=== PATIENT | male | born 1985 | race Caucasian/White ===

== ENCOUNTER → 2024-05-17 | Outpatient (BNVA) | payer MEDICAID, SELFPAY | END | disposition home or self-care (01) | PROVIDERS: PCP Family Medicine; Referring Provider Family Medicine; Visit Provider Urology | DX: N47.1 Phimosis (principal); N48.1 Balanitis; E66.9 Obesity, unspecified; Z68.39 Body mass index [BMI] 39.0-39.9, adult | CPT/HCPCS: 81003; 99212; G0463 ==

== ENCOUNTER → 2024-10-30 | Outpatient (BNVA) | payer MEDICAID, SELFPAY | END | disposition home or self-care (01) | PROVIDERS: PCP Family Medicine; Referring Provider Family Medicine; Visit Provider Urology | DX: N40.1 Benign prostatic hyperplasia with lower urinary tract symptoms (principal); N13.8 Other obstructive and reflux uropathy; N47.1 Phimosis; I10 Essential (primary) hypertension; E66.01 Morbid (severe) obesity due to excess calories; Z68.39 Body mass index [BMI] 39.0-39.9, adult; E11.9 Type 2 diabetes mellitus without complications | CPT/HCPCS: 81003; 99212; G0463 ==

== ENCOUNTER 2024-11-03 10:53 | Emergency (ER) | payer MEDICAID, SELFPAY ==
[2024-11-03 11:01] VITALS: BP 173/113; BP 177/114; PULSE 80; RESP 18; TEMP 36.9; O2SAT 96; BMI 38.6
--- NOTE | 2024-11-03 11:30 | PD.EDRME ---
Rapid Medical Screening Exam RME Arrival date/time: 11/03/24 10:53 39-year-old male with reports no significant medical history presents with complaints of right-sided facial pain and right-sided ear pain patient noted to be hypertensive Chief Complaint: Skin/Abscess/Foreign Body Time Seen by Provider: 11/03/24 11:11 Vital signs: Vital Signs Temperature 98.4 F 11/03/24 11:01 Pulse Rate 80 11/03/24 11:01 Respiratory Rate 18 11/03/24 11:01 Blood Pressure 177/114 H 11/03/24 11:01 Pulse Oximetry (%) 96 11/03/24 11:01 Oxygen Delivery Method Room Air 11/03/24 11:01
[2024-11-03 11:32] VITALS: BP 177/114; PULSE 80
[2024-11-03] MEDS: HYDROcodone/APAP 5/325 TABLET 1 TAB PO (11:32)
[2024-11-03] MEDS: cloNIDine HCL 0.1 MG TABLET PO ×2 (11:32→13:45)
[2024-11-03 11:43] LABS: Basophils % (Auto) 1 % (0-2.5); Eosinophils # (Auto) 0.3 Thou/mm3 (0.0-0.5); Eosinophils % (Auto) 4 % (0-10); Hematocrit 53.1 % (41.0-53.0); Hemoglobin 19.2 g/dL (13.5-16.0); Immature Granulocytes % (Auto) 0 % (0-0); Immature Granulocytes Auto 0.03 Thou/mm3 (0.00-0.00); Lymphocytes # (Auto) 1.8 Thou/mm3 (1.0-4.8); Lymphocytes % (Auto) 25 % (10-50); Mean Corpuscular HGB Conc 36.2 g/dl (31.0-37.0); Mean Corpuscular Hemoglobin 32.9 pg (25.0-35.0); Mean Corpuscular Volume 91 fL (80-100); Monocytes # (Auto) 0.5 Thou/mm3 (0.0-0.8); Monocytes % (Auto) 7 % (0-12); Neutrophils # (Auto) 4.7 Thou/mm3 (1.8-7.7); Neutrophils % (Auto) 64 % (37-80); Nucleated Red Blood Cell % 0 /100 WBC (0); Platelet Count 142 Thou/mm3 (140-440); RDW Standard Deviation 38.3 fL (35.1-43.9); Red Blood Count 5.84 Miln/mm3 (4.50-5.90); White Blood Count 7.4 Thou/mm3 (3.8-10.6)
[2024-11-03 12:01] LABS: Glucose Estimated Average 226 mg/dL (80-131); Hemoglobin A1C 9.5 % Hgb (4.8-6.0)
[2024-11-03 12:02] LABS: Alanine Aminotransferase 109 U/L (10-49); Albumin, Serum 4.4 gm/dL (3.5-5.0); Albumin/Globulin Ratio 1.3 (1.2-2.2); Alkaline Phosphatase 107 U/L (46-116); Anion Gap 9 (7-16); Aspartate Amino Transferase 120 U/L (0-34); BUN/Creatinine Ratio 9 Ratio (12-20); Bilirubin,Total 1.3 mg/dL (0.3-1.2); Blood Urea Nitrogen 7 mg/dL (9-23); Calcium 9.3 mg/dL (8.3-10.6); Calcium (Corrected) 9.3 mg/dL (8.5-10.1); Carbon Dioxide 28.1 mMol/L (20.0-31.0); Chloride 101 mMol/L (98-107); Creatinine (Component) 0.8 mg/dL (0.6-1.3); Globulin 3.5 gm/dL (2.3-3.5); Glucose 253 mg/dL (74-106); Osmolality,Calculated 282 (275-295); Potassium 4.2 mMol/L (3.4-5.1); Sodium 138 mMol/L (136-145); Total Protein 7.9 gm/dL (5.7-8.2); eGFR > 60 See Note
[2024-11-03] MEDS: ACETAMINOPHEN 325 MG TABLET 650 MG PO (13:44)
[2024-11-03] MEDS: cephALEXin 250 MG CAPSULE 500 MG PO (13:44)
[2024-11-03 13:45] VITALS: BP 177/114; PULSE 80
--- NOTE | 2024-11-03 13:48 | EDNOTE_ITS ---
ED Skin Abcess FB-RME/HPI General Chief complaint: Skin/Abscess/Foreign Body Stated complaint: PAINFUL SWELING RIGHT SIDE OF FACE Time Seen by Provider: 11/03/24 11:11 Arrival date/time: 11/03/24 10:53 Limitations: no limitations RME / HPI RME / HPI narrative: 11/03/24 10:53 39-year-old male with reports no significant medical history presents with complaints of right-sided facial pain and right-sided ear pain patient noted to be hypertensive DR. GRIFFITHS MAIN ED EVALUATION: 39 year old male with no stated medical history presents to the ED for evaluation of localized pain near the right ear, which began on Tuesday and has progressively worsened. The patient reports taking OTC pain medication at home with minimal relief. The pain is now associated with right ear discomfort but without drainage, hearing loss, or other otologic symptoms. He denies fever, headache, facial weakness, or other associated complaints. Related Data Previous Rx's ?Medication ?Instructions ?Recorded cephalexin 500 mg capsule 500 mg PO Q6H 10 days #40 ca ps 11/03/24 clonidine HCl 0.1 mg tablet 0.1 mg PO BID high blood p ressure 11/03/24 #20 tabs Allergies Allergy/AdvReac Type Severity Reaction Status Date / Time No Known Allergies Allergy Verified 11/03/24 10:55 Review of Systems Review of Systems Systems Reviewed: All systems reviewed, normal except as documented Past Medical History Past Medical History NEUROLOGIC: Negative Neurological Disorders or Seizures CARDIAC: Negative Congestive Heart Failure RESPIRATORY: Negative Chronic Obstructive Pulmonary Disease (COPD) GENITOURINARY: Negative Renal Disease ENDOCRINE: Negative Diabetes Mellitus Type 1, Diabetes Mellitus Type 2 or Hyperthyroidism Social History SMOKING STATUS: Never smoker ED Exam General Limitations: Present no limitations General appearance: Present alert and in no apparent distress Head Head exam: Present atraumatic, normocephalic and normal inspection Eye Eye exam: Present normal appearance, PERRL and EOMI ENT ENT exam: Present normal oropharynx, mucous membranes moist and other (normal facial contour, rigth TM normal, no TMJ tenderness, no pain with pulling on ear, no evidence of abscess ) Neck Neck exam: Present normal inspection, full ROM and trachea midline Chest Chest inspection: Present normal inspection and symmetric chest wall rise Respiratory Respiratory exam: Present normal lung sounds bilaterally Cardiovascular Cardiovascular exam: Present regular rate, normal rhythm and normal heart sounds Abdominal Exam Abdominal exam: Present soft and normal bowel sounds Extremities Exam Extremities exam: Present normal inspection and full ROM Back Exam Back exam: Present normal inspection and full ROM Neurological Exam Neurological exam: Present alert, oriented X3 and CN II-XII intact Psychiatric Psychiatric exam: Present normal affect and normal mood Skin Skin exam: Present warm, dry, intact and normal color Course Quality Measures none Orders Category Date Time Status A1C [Glycohemoglobin w (eAG)] Stat Lab 11/03/24 11:30 Completed CBC Stat Lab 11/03/24 11:30 Completed CMP [Comprehensive Metabolic Panel] Stat Lab 11/03/24 11:30 Completed Acetaminophen Tab [Tylenol Tab] Med 11/03/24 13:24 Discontinued 650 mg PO X1 ONE HYDROcodone*/APAP 5/325 [Roxana 5/325] Med 11/03/24 11:20 Discontinued 1 tab PO X1 ONE cephALEXin [Keflex] Med 11/03/24 13:24 Discontinued 500 mg PO X1 ONE cloNIDine HCL [Catapres] Med 11/03/24 11:20 Discontinued 0.1 mg PO X1 ONE cloNIDine HCL [Catapres] Med 11/03/24 13:24 Discontinued 0.1 mg PO X1 ONE Vital Signs Vital signs: Vital Signs Temperature 98.4 F 11/03/24 11:01 Pulse Rate 80 11/03/24 11:01 Respiratory Rate 18 11/03/24 11:01 Blood Pressure 177/114 H 11/03/24 11:01 Pulse Oximetry (%) 96 11/03/24 11:01 Oxygen Delivery Method Room Air 11/03/24 11:01 Pulse ox is 96% on room air which is adequate. Skin / Abscess / Foreign Body MDM Narrative MDM Narrative:: Unique Varela am scribing for and in the presence of Dr. Griffiths. Patient remains clinically stable throughout the emergency department visit. We reviewed all the results, analysis, and treatment plans. Patient is amenable to discharge. Strict return precautions were outlined. Patient was discharged in stable condition. Patient data External records reviewed:: [facility] previous records (I reviewed ED visit on 01/20/2023 ) Clinical information provided by:: patient Social determinants that could affect healthcare access:: alcohol use Patient has the following chronic illnesses:: None reported How is presenting disease/condition affected by chronic disease/condition?: no chronic disease Evaluation data The following diagnostics were reviewed and interpreted by me:: lab results Lab and/or radiology exams considered but not ordered:: None Interpretation Summary: Patient has elevated hemoglobin, no leukocytosis, no evidence of infection. Medications / Prescriptions Medications or Prescriptions considered but not ordered:: None Medication administrations:: Medication Administration History Discontinued Medications Acetaminophen (Acetaminophen 325 Mg Tablet) 650 mg PO X1 ONE Stop: 11/03/24 13:25 Last Admin: 11/03/24 13:44 Dose: 650 mg Documented By: ANGELA Hydrocodone Bitart/Acetaminophen (Hydrocodone/Apap 5/325 Tablet) 1 tab PO X1 ONE Stop: 11/03/24 11:21 Last Admin: 11/03/24 11:32 Dose: 1 tab Documented By: TAWNYA Cephalexin HCl (Cephalexin 250 Mg Capsule) 500 mg PO X1 ONE Stop: 11/03/24 13:25 Last Admin: 11/03/24 13:44 Dose: 500 mg Documented By: ANGELA Clonidine (Clonidine Hcl 0.1 Mg Tablet) 0.1 mg PO X1 ONE Stop: 11/03/24 11:21 Last Admin: 11/03/24 11:32 Dose: 0.1 mg Documented By: TAWNYA Clonidine (Clonidine Hcl 0.1 Mg Tablet) 0.1 mg PO X1 ONE Stop: 11/03/24 13:25 Last Admin: 11/03/24 13:45 Dose: 0.1 mg Documented By: ANGELA See above Consultations Consultation(s) initiated? (list below): No Diagnosis Skin/Abscess Differential Diagnosis: abscess of skin or subcutaneous tissue, herpes zoster, cellulitis and contact dermatitis Most likely diagnosis given after review of the tests above:: Sebaceous cyst Admission Indicated Admission indicated?: not indicated Admission Request Was there a request for admission?: No Disposition Plan Disposition Plan: Discharge Discharge Attestation Discharge Attestation: The patient and all family members were given an opportunity to ask questions and understood the discharge instructions. Discharge instructions specifically effects, indications for sooner follow up or return to the emergency department, and the expected course of current diagnosis. Patient condition: Stable Discharge Plan Plan Patient Disposition: HOME (Self Care) Prescriptions/Referrals Prescriptions/Med Rec: New cephalexin 500 mg capsule 500 mg PO Q6H 10 Days Qty: 40 0RF clonidine HCl 0.1 mg tablet 0.1 mg PO BID MDD 3 Qty: 20 0RF Referrals: [facility] [Outside] - In 1 week Problem List Clinical Impression: Sebaceous cyst, Elevated blood pressure reading, Elevated hemoglobin Patient/Caregiver Discharge Instructions Education Materials: ED Epidermoid Cyst, No Infection Additional Instructions: Apply warm compresses to the area. Please buy a blood pressure cuff from the store and take your blood pressure every morning to show to your doctor. Follow-up with the [facility] in 3 to 5 days for recheck and blood pressure management. You can return to the emergency department sooner if symptoms worsen or if you notice any new, concerning issues. Print Language: Estonian Stand Alone Forms: Geetha Award Info., Patient Portal Info Letter
== END 2024-11-03 14:05 | disposition home or self-care (01) ==
PROVIDERS: Nurse Practitioner Primary Care; Emergency Provider Family Medicine; PCP Family Medicine
DX: L72.3 Sebaceous cyst (principal); R03.0 Elevated blood-pressure reading, without diagnosis of hypertension
CPT/HCPCS: 36415; 80053; 83036; 85025; 99283; A9270

== ENCOUNTER 2024-12-05 11:11 | Emergency (ER) | payer MEDICAID, SELFPAY ==
[2024-12-05 11:28] VITALS: BP 179/122; BP 187/117; PULSE 96; RESP 18; TEMP 37.1; O2SAT 96; BMI 39.4
--- NOTE | 2024-12-05 11:45 | PD.EDRME ---
Rapid Medical Screening Exam E Arrival date/time: 12/05/24 11:11 39-year-old male presents to the emergency department today for complaints of right-sided facial swelling ongoing for the last couple of days incidentally patient noted to have high blood pressure patient reports history of. Patient does not take any medication for his blood pressure. Chief Complaint: Skin/Abscess/Foreign Body Vital signs: Vital Signs Temperature 98.7 F 12/05/24 11:28 Pulse Rate 96 12/05/24 11:28 Respiratory Rate 18 12/05/24 11:28 Blood Pressure 187/117 H 12/05/24 11:28 Pulse Oximetry (%) 96 12/05/24 11:28 Oxygen Delivery Method Room Air 12/05/24 11:28
[2024-12-05 12:01] VITALS: BP 187/117; PULSE 96
[2024-12-05] MEDS: NIFEdipine 10 MG CAPSULE 20 MG PO (12:01)
[2024-12-05 12:21] LABS: Lactate (Lactic Acid) 1.7 mMol/L (0.4-2.0)
[2024-12-05 12:26] LABS: Basophils % (Auto) 0 % (0-2.5); Eosinophils # (Auto) 0.2 Thou/mm3 (0.0-0.5); Eosinophils % (Auto) 3 % (0-10); Hematocrit 53.2 % (41.0-53.0); Hemoglobin 18.9 g/dL (13.5-16.0); Immature Granulocytes % (Auto) 0 % (0-0); Immature Granulocytes Auto 0.03 Thou/mm3 (0.00-0.00); Lymphocytes # (Auto) 2.1 Thou/mm3 (1.0-4.8); Lymphocytes % (Auto) 28 % (10-50); Mean Corpuscular HGB Conc 35.5 g/dl (31.0-37.0); Mean Corpuscular Hemoglobin 32.5 pg (25.0-35.0); Mean Corpuscular Volume 92 fL (80-100); Monocytes # (Auto) 0.6 Thou/mm3 (0.0-0.8); Monocytes % (Auto) 9 % (0-12); Neutrophils # (Auto) 4.4 Thou/mm3 (1.8-7.7); Neutrophils % (Auto) 60 % (37-80); Nucleated Red Blood Cell % 0 /100 WBC (0); Platelet Count 148 Thou/mm3 (140-440); RDW Standard Deviation 39.5 fL (35.1-43.9); Red Blood Count 5.81 Miln/mm3 (4.50-5.90); White Blood Count 7.3 Thou/mm3 (3.8-10.6)
[2024-12-05 12:38] LABS: Glucose Estimated Average 240 mg/dL (80-131)
[2024-12-05 12:53] LABS: Alanine Aminotransferase 42 U/L (10-49); Albumin, Serum 4.3 gm/dL (3.5-5.0); Albumin/Globulin Ratio 1.3 (1.2-2.2); Alkaline Phosphatase 96 U/L (46-116); Anion Gap 10 (7-16); Aspartate Amino Transferase 61 U/L (0-34); BUN/Creatinine Ratio 9 Ratio (12-20); Bilirubin,Total 1.3 mg/dL (0.3-1.2); Blood Urea Nitrogen 6 mg/dL (9-23); Calcium 9.3 mg/dL (8.3-10.6); Calcium (Corrected) 9.3 mg/dL (8.5-10.1); Chloride 100 mMol/L (98-107); Creatinine (Component) 0.7 mg/dL (0.6-1.3); Estimated Creatinine Clearance 195.4 mL/min (>60); Globulin 3.4 gm/dL (2.3-3.5); Glucose 243 mg/dL (74-106); Osmolality,Calculated 281 (275-295); Potassium 4.1 mMol/L (3.4-5.1); Procalcitonin 0.05 ng/ml (0.0-0.49); Sodium 138 mMol/L (136-145); Total Protein 7.7 gm/dL (5.7-8.2); eGFR > 60 See Note
--- NOTE | 2024-12-05 13:56 | PC.NURSE ---
NAx1 @7709 for medication and discharge.
[2024-12-05] MEDS: CLINDAMYCIN PHOS INJ 150 MG/ML VIAL 6 ML 600 MG IM (14:20)
[2024-12-05 14:47] VITALS: BP 156/96; PULSE 110
--- NOTE | 2024-12-05 18:06 | EDNOTE_ITS ---
ED Skin Abcess FB-RME/HPI General Chief complaint: Skin/Abscess/Foreign Body Stated complaint: Right above eye abscess X 4 days Time Seen by Provider: 12/05/24 13:43 Arrival date/time: 12/05/24 11:11 39-year-old male presents to the emergency department today for complaints of right-sided facial swelling ongoing for the last couple of days incidentally patient noted to have high blood pressure patient reports history of. Patient does not take any medication for his blood pressure. Limitations: no limitations RME / HPI RME / HPI narrative: 12/05/24 11:11 39-year-old male presents to the emergency department today for complaints of right-sided facial swelling ongoing for the last couple of days incidentally patient noted to have high blood pressure patient reports history of. Patient does not take any medication for his blood pressure. Related Data Previous Rx's ?Medication ?Instructions ?Recorded clonidine HCl 0.1 mg tablet 0.1 mg PO BID high blood p ressure 11/03/24 #20 tabs clindamycin HCl 150 mg capsule 450 mg (3 x 150 mg) PO TID 7 days 12/05/24 #63 caps ibuprofen 800 mg tablet 800 mg PO TID PRN pain #30 t abs 12/05/24 metformin 500 mg tablet 500 mg PO BID #60 tabs 12/05 Allergies Allergy/AdvReac Type Severity Reaction Status Date / Time No Known Allergies Allergy Verified 12/05/24 11:15 Review of Systems Review of Systems Systems Reviewed: All systems reviewed, normal except as documented Constitutional Constitutional: Reports system reviewed and no additional complaints, except as documented, Denies fever(s) and Denies headache(s) Eyes Eyes: Reports system reviewed and no additional complaints, except as documented and Denies blurry vision ENT Ears, Nose, Mouth, and Throat: Reports system reviewed and no additional complaints, except as documented, Denies headache(s), Denies nasal congestion and Denies nasal discharge Cardiovascular Cardiovascular: Reports system reviewed and no additional complaints, except as documented, Denies chest pain and Denies dyspnea Respiratory Respiratory: Reports system reviewed and no additional complaints, except as documented, Denies chest congestion, Denies cough and Denies dyspnea Gastrointestinal Gastrointestinal: Reports system reviewed and no additional complaints, except as documented and Denies abdominal pain Integumentary/Breasts Skin/Breast: Reports system reviewed and no additional complaints, except as documented, Denies rash and Reports other (Redness, swelling possible early abscess right cheondoism region) Neurologic Neurologic: Reports system reviewed and no additional complaints, except as documented, Reports as per HPI and Denies headache(s) Past Medical History Past Medical History NEUROLOGIC: Negative Neurological Disorders or Seizures CARDIAC: Negative Congestive Heart Failure RESPIRATORY: Negative Chronic Obstructive Pulmonary Disease (COPD) GENITOURINARY: Negative Renal Disease ENDOCRINE: Negative Diabetes Mellitus Type 1, Diabetes Mellitus Type 2 or Hypert hyroidism Social History SMOKING STATUS: Never smoker ED Exam General Limitations: Present no limitations General appearance: Present alert and in no apparent distress Head Head exam: Present atraumatic, normocephalic and normal inspection Eye Eye exam: Present normal appearance, PERRL and EOMI; Absent conjunctival injection ENT ENT exam: Present normal exam, normal oropharynx and mucous membranes moist Neck Neck exam: Present normal inspection, full ROM and trachea midline Chest Chest inspection: Present normal inspection and symmetric chest wall rise Respiratory Respiratory exam: Present normal lung sounds bilaterally Cardiovascular Cardiovascular exam: Present regular rate, normal rhythm and normal heart sounds Abdominal Exam Abdominal exam: Present soft and normal bowel sounds; Absent distention, tenderness, guarding, rebound or rigidity Extremities Exam Extremities exam: Present normal inspection and full ROM Back Exam Back exam: Present normal inspection and full ROM Neurological Exam Neurological exam: Present alert, oriented X3, CN II-XII intact, normal gait and reflexes normal; Absent motor sensory deficit Psychiatric Psychiatric exam: Present normal affect and normal mood Skin Skin exam: Present warm, dry and intact (Redness, swelling possible early abscess right cheondoism region) Course Quality Measures none Orders Category Date Time Status A1C [Glycohemoglobin w (eAG)] Stat Lab 12/05/24 11:57 Completed Blood Culture (Lab) Stat Lab 12/05/24 11:57 Received CBC Stat Lab 12/05/24 11:57 Completed Comprehensive Metabolic Panel Stat Lab 12/05/24 11:57 Completed Lactate (Lactic Acid) Stat Lab 12/05/24 11:57 Completed Procalcitonin Stat Lab 12/05/24 11:57 Completed Clindamycin Vial [Cleocin vial] Med 12/05/24 13:44 Discontinued 600 mg IM X1 ONE NIFEdipine [Procardia] Med 12/05/24 11:44 Discontinued 20 mg PO X1 ONE Vital Signs Vital signs: Vital Signs Temperature 98.7 F 12/05/24 11:28 Pulse Rate 96 12/05/24 11:28 Respiratory Rate 18 12/05/24 11:28 Blood Pressure 187/117 H 12/05/24 11:28 Pulse Oximetry (%) 96 12/05/24 11:28 Oxygen Delivery Method Room Air 12/05/24 11:28 O2 saturation 96% room air within normal limits Skin / Abscess / Foreign Body MDM Narrative MDM Narrative:: 39-year-old male presents to the emergency department today for complaints of right-sided facial swelling ongoing for the last couple of days incidentally patient noted to have high blood pressure patient reports history of. Patient does not take any medication for his blood pressure. Patient has no evidence of periorbital cellulitis On exam despite patient having hypertension and evidence of infection patient does not appear ill or toxic Patient given medication for his blood pressure which decrease it nicely Patient is hemodynamically stable denies any chest pain shortness of breath or abdominal pain Patient is afebrile Lab work obtained which does show the patient is diabetic patient not currently be treating for this Patient be treated with metformin and antibiotics Explained to the patient must follow-up with primary care doctor as soon as possible I would like the patient to return in 2 to 3 days patient states understanding for reevaluation Patient data External records reviewed:: [facility] previous records Clinical information provided by:: patient Social determinants that could affect healthcare access:: none Patient has the following chronic illnesses:: None How is presenting disease/condition affected by chronic disease/condition?: exacerbated by Evaluation data The following diagnostics were reviewed and interpreted by me:: lab results Lab and/or radiology exams considered but not ordered:: Labs obtain Interpretation Summary: Reviewed by me Medications / Prescriptions Medications or Prescriptions considered but not ordered:: Given Medication administrations:: Medication Administration History Discontinued Medications Clindamycin Phosphate (Clindamycin Phos Inj 150 Mg/Ml Vial 6 Ml) 600 mg IM X1 ONE Stop: 12/05/24 13:45 Last Admin: 12/05/24 14:20 Dose: 600 mg Documented By: Nifedipine (Nifedipine 10 Mg Capsule) 20 mg PO X1 ONE Stop: 12/05/24 11:45 Last Admin: 12/05/24 12:01 Dose: 20 mg Documented By: DB Given Consultations Consultation(s) initiated? (list below): No Diagnosis Skin/Abscess Differential Diagnosis: abscess of skin or subcutaneous tissue, cellulitis and contact dermatitis Most likely diagnosis given after review of the tests above:: Abscess versus cellulitis, hypertension uncontrolled, diabetes uncontrolled Admission Indicated Admission indicated?: not indicated Admission Request Was there a request for admission?: No Disposition Plan Disposition Plan: Discharge Discharge Attestation Discharge Attestation: The patient and all family members were given an opportunity to ask questions and understood the discharge instructions. Discharge instructions specifically effects, indications for sooner follow up or return to the emergency department, and the expected course of current diagnosis. Patient condition: Stable Discharge Plan Plan Patient Disposition: HOME (Self Care) Discharge Disposition comment: Stable Prescriptions/Referrals Prescriptions/Med Rec: New metformin 500 mg tablet 500 mg PO BID Qty: 60 0RF ibuprofen 800 mg tablet 800 mg PO TID PRN (Reason: pain) Qty: 30 0RF clindamycin HCl 150 mg capsule 450 mg PO TID 7 Days Qty: 63 0RF No Action clonidine HCl 0.1 mg tablet 0.1 mg PO BID MDD 3 Qty: 20 0RF Referrals: Rihcard Lee [Primary Care Provider] - 12/06/24 Problem List Clinical Impression: Cellulitis of face, Hypertension, Diabetes Patient/Caregiver Discharge Instructions Education Materials: Diabetes and Heart Disease Additional Instructions: Please return in 2 to 3 days for reevaluation for worsening symptoms or concerns return immediately Print Language: Australian Stand Alone Forms: Geetha Award Info., Patient Portal Info Letter PA/[employer]IONER Supervising Physician PA/[employer] COMM[employer]IONER Supervising Physician: Dr. jerry
== END 2024-12-05 14:54 | disposition home or self-care (01) ==
PROVIDERS: Nurse Practitioner Primary Care; Emergency Provider Emergency Medicine; PCP Physician Assistant
DX: L03.211 Cellulitis of face (principal); E11.9 Type 2 diabetes mellitus without complications; I10 Essential (primary) hypertension; Z79.84 Long term (current) use of oral hypoglycemic drugs
CPT/HCPCS: 36415; 80053; 83036; 83605; 84145; 85025; 87040; 99283; J0736; A9270